=== PATIENT | female | born 1995 | race Hispanic/Latino ===

== ENCOUNTER 2023-11-20 09:00 | Emergency (ER) | payer BC ==
[~2023-11-20] VITALS: Ht 152.4 cm; Wt 129.3 kg
[2023-11-20 09:28] LABS: BASOPHILS # (AUTO) 0.1 (0.0-0.1); BASOPHILS % 0.8 % (0.0-1.0); EOSINOPHILS # (AUTO) 0.1 (0.0-0.4); EOSINOPHILS % 1.3 % (0.0-6.0); HEMATOCRIT 44.5 % (34.2-44.1); HEMOGLOBIN 16.1 g/dL (12.0-16.0); LYMPHOCYTES # (AUTO) 2.6 (1.0-3.2); LYMPHOCYTES % 29.3 % (18.0-39.1); MEAN CORPUSCULAR HEMOGLOBIN 32.4 pg (28-32); MEAN CORPUSCULAR HGB CONC 36.2 g/dL (31-35); MEAN CORPUSCULAR VOLUME 89.5 fL (81-99); MONOCYTES # (AUTO) 0.5 (0.2-0.8); MONOCYTES % 5.1 % (4.4-11.3); NEUTROPHILS # (AUTO) 5.6 (2.1-6.9); NEUTROPHILS % 62.5 % (38.7-80.0); PLATELET COUNT 300 x10e3/uL (140-360); RED BLOOD COUNT 4.97 x10e6/uL (3.6-5.1); RED CELL DISTRIBUTION WIDTH 12.2 % (11.7-14.4); WHITE BLOOD COUNT 9.01 x10e3/uL (4.8-10.8)
[2023-11-20] MEDS ORDERED: ONDANSETRON HCL INJ 2MG/ML 2ML 2 MG/ML VIAL ONE ×2 (09:33→14:24)
[2023-11-20] MEDS ORDERED: Morphine 4mg INJECTION 4 MG/ML INJ ONE ×2 (09:34→14:24)
[2023-11-20] MEDS ORDERED: SODIUM CHLORIDE 0.9% 1000ML 1,000 ML ONE (09:34)
[2023-11-20] MEDS ORDERED: KETOROLAC TROMETHAMINE 30 MG/ML VIAL ONE ×2 (09:34→14:24)
[2023-11-20] MEDS: SODIUM CHLORIDE 0.9% 1000ML 1,000 ML IV STA (09:35)
[2023-11-20] MEDS: Morphine 4mg INJECTION 4 MG/ML INJ IV STA (09:36)
[2023-11-20] MEDS: ONDANSETRON HCL INJ 2MG/ML 2ML 2 MG/ML VIAL IV STA (09:36)
[2023-11-20 09:50] LABS: INR 0.94; PARTIAL THROMBOPLASTIN TIME 29.5 seconds (23.8-35.5); PROTHROMBIN TIME 13.2 seconds (11.9-14.5)
[2023-11-20 09:52] LABS: ALANINE AMINOTRANSFERASE 75 IU/L (0-55); ALBUMIN 4.4 g/dL (3.5-5.0); ALBUMIN/GLOBULIN RATIO 1.1 (0.8-2.0); ALKALINE PHOSPHATASE 66 IU/L (40-150); ANION GAP 17.9 mmol/L (8-16); BILIRUBIN,TOTAL 0.8 mg/dL (0.2-1.2); BLOOD UREA NITROGEN 10 mg/dL (7-26); BUN/CREATININE RATIO 13 (6-25); CALCIUM 10.1 mg/dL (8.4-10.2); CARBON DIOXIDE 23 mmol/L (22-29); CHLORIDE 104 mmol/L (98-107); CREATININE, SERUM 0.75 mg/dL (0.57-1.11); EST GLOMERULAR FILTRATION RATE 113 ML/MIN (>=60); GLUCOSE 111 mg/dL (74-118); MAGNESIUM 1.7 MG/DL (1.3-2.1); POTASSIUM 3.9 mmol/L (3.5-5.1); SODIUM 141 mmol/L (136-145); TOTAL PROTEIN 8.3 g/dL (6.5-8.1)
[2023-11-20] MEDS: KETOROLAC TROMETHAMINE 30 MG/ML VIAL IV STA (10:29)
[2023-11-20 10:52] LABS: AMPHETAMINES SCREEN,URINE NEGATIVE (NEGATIVE); BENZODIAZEPINES SCREEN,URINE NEGATIVE (NEGATIVE); CANNABINOIDS SCREEN,URINE NEGATIVE (NEGATIVE); METHADONE SCREEN, URINE NEGATIVE (NEGATIVE); OPIATES SCREEN,URINE POSITIVE (NEGATIVE); PHENCYCLIDINE SCREEN,URINE NEGATIVE (NEGATIVE)
[2023-11-20 10:53] LABS: BILIRUBIN,URINE NEGATIVE (NEGATIVE); CLARITY,URINE CLOUDY (CLEAR); COLOR,URINE YELLOW (YELLOW); GLUCOSE, URINE NEGATIVE (NEGATIVE); KETONES,URINE NEGATIVE (NEGATIVE); LEUKOCYTE ESTERASE ,URINE NEGATIVE (NEGATIVE); NITRITE,URINE NEGATIVE (NEGATIVE); PH,URINE 5.5 (5 - 7); PROTEIN,URINE DIPSTICK NEGATIVE (NEGATIVE); URINE UROBILINOGEN 0.2 mg/dL (0.2 - 1)
[2023-11-20 11:01] LABS: BACTERIA,URINE FEW /HPF; EPITHELIAL CELLS,URINE FEW /LPF; RBC,URINE >50 /HPF (0-5); WBC,URINE (MAN) 0-5 /HPF (0-5)
[2023-11-20] MEDS ORDERED: ONDANSETRON ODT4 MG PO (11:34)
[2023-11-20] MEDS ORDERED: FLOMAX0.4 MG PO (11:34)
[2023-11-20] MEDS ORDERED: HYDROCODON-ACE1 EA11 PO (11:35)
[2023-11-20 12:02] VITALS: BP 114/64; PULSE 64; RESP 17; TEMP 98.1; O2SAT 97
[2023-11-20] MEDS ORDERED: SODIUM CHLORIDE 0.9% 1000 ML BAG ONE (14:24)
== END 2023-11-20 11:55 | disposition home or self-care (01) ==
LOC: ER 09:08
DX: R10.31 Right lower quadrant pain (principal); N13.2 Hydronephrosis with renal and ureteral calculous obstruction; K76.0 Fatty (change of) liver, not elsewhere classified; R16.0 Hepatomegaly, not elsewhere classified
CPT/HCPCS: 36415; 51798; 74176; 80053; 80307; 81001; 83735; 84702; 85025; 85610; 85730; 87086; 99284; J1885; J2270; J2405; J7030

== ENCOUNTER 2024-06-10 07:46 | Inpatient (IN) | payer BC ==
[~2024-06-10] VITALS: Ht 152.4 cm; Wt 129.7 kg
[2024-06-10] VITALS (7 sets, daily range): BP systolic 115–144; BP diastolic 71–91; PULSE 78–98; RESP 16–20; TEMP 97.7–99.3; O2SAT 98–100
[~2024-06-10 07:46] MED LIST: FLOMAX0.4 MG PO; HYDROCODON-ACE1 EA11 PO; ONDANSETRON ODT4 MG PO
[2024-06-10 08:26] LABS: BASOPHILS # (AUTO) 0.1 (0.0-0.1); BASOPHILS % 0.6 % (0.0-1.0); EOSINOPHILS # (AUTO) 0.1 (0.0-0.4); EOSINOPHILS % 1.1 % (0.0-6.0); HEMATOCRIT 42.1 % (34.2-44.1); HEMOGLOBIN 14.3 g/dL (12.0-16.0); LYMPHOCYTES # (AUTO) 2.5 (1.0-3.2); LYMPHOCYTES % 30.8 % (18.0-39.1); MEAN CORPUSCULAR HEMOGLOBIN 32.1 pg (28-32); MEAN CORPUSCULAR VOLUME 94.4 fL (81-99); MONOCYTES # (AUTO) 0.5 (0.2-0.8); MONOCYTES % 6.2 % (4.4-11.3); NEUTROPHILS % 60.8 % (38.7-80.0); PLATELET COUNT 250 x10e3/uL (140-360); RED BLOOD COUNT 4.46 x10e6/uL (3.6-5.1); WHITE BLOOD COUNT 8.17 x10e3/uL (4.8-10.8)
[2024-06-10] MEDS ORDERED: SODIUM CHLORIDE 0.9% 1000ML 1,000 ML IV SCH (08:30)
[2024-06-10 08:43] LABS: CLARITY,URINE CLOUDY (CLEAR); COLOR,URINE YELLOW (YELLOW); LEUKOCYTE ESTERASE ,URINE NEGATIVE (NEGATIVE); PH,URINE 5.5 (5 - 7)
[2024-06-10] MEDS: KETOROLAC TROMETHAMINE 30 MG/ML VIAL IV STA (08:43)
[2024-06-10] MEDS: ONDANSETRON HCL INJ 2MG/ML 2ML 2 MG/ML VIAL IV STA (08:43)
[2024-06-10 08:44] LABS: BACTERIA,URINE MODERATE /HPF; BILIRUBIN,URINE NEGATIVE (NEGATIVE); EPITHELIAL CELLS,URINE MANY /LPF; GLUCOSE, URINE NEGATIVE (NEGATIVE); KETONES,URINE NEGATIVE (NEGATIVE); NITRITE,URINE NEGATIVE (NEGATIVE); PROTEIN,URINE DIPSTICK 1+ (NEGATIVE); RBC,URINE >50 /HPF (0-5); URINE UROBILINOGEN 0.2 mg/dL (0.2 - 1)
[2024-06-10 08:45] LABS: PREGNANCY TEST, URINE NEGATIVE (NEGATIVE)
[2024-06-10 08:51] LABS: ANION GAP 14.6 mmol/L (8-16); CALCIUM 9.3 mg/dL (8.4-10.2); CREATININE, SERUM 0.74 mg/dL (0.57-1.11); POTASSIUM 3.6 mmol/L (3.5-5.1)
[2024-06-10] MEDS: Morphine 4mg INJECTION 4 MG/ML INJ IV ONE (10:01)
[2024-06-10] MEDS: SODIUM CHLORIDE 0.9% 1000ML 1,000 ML IV SCH (10:18)
[2024-06-10] MEDS ORDERED: ALBUTEROL/IPRATROPIUM 3 ML NEB NEB PRN (14:30)
[2024-06-10] MEDS ORDERED: ACETAMINOPHEN 325 MG TAB PO PRN (14:30)
[2024-06-10] MEDS ORDERED: HYDRALAZINE HCL 20 MG/ML VIAL IV PRN (14:30)
[2024-06-10] MEDS ORDERED: BENZONATATE 100 MG CAP PO PRN (14:30)
[2024-06-10] MEDS ORDERED: DOCUSATE SODIUM 100 MG CAP PO PRN (14:30)
[2024-06-10] MEDS ORDERED: DEXTROSE 50% SYRINGE 50 ML IV PRN (14:30)
[2024-06-10] MEDS ORDERED: LIDOCAINE 4% PATCH TP PRN (14:30)
[2024-06-10] MEDS ORDERED: POTASSIUM CHLORIDE 20 MEQ TAB CR PO PRN (14:30)
[2024-06-10] MEDS ORDERED: DIPHENHYDRAMINE HCL 25 MG CAP PO PRN (14:30)
[2024-06-10] MEDS ORDERED: SIMETHICONE 80 MG CHEW PO PRN (14:30)
[2024-06-10] MEDS: Morphine 4mg INJECTION 4 MG/ML INJ IV PRN (14:39)
[2024-06-10] MEDS: ENOXAPARIN SOD INJ 40 MG/0.4 ML SYR SC SCH (16:52)
[2024-06-10] MEDS: ONDANSETRON HCL INJ 2MG/ML 2ML 2 MG/ML VIAL IV PRN (16:59)
[2024-06-10] MEDS ORDERED: MELATONIN 5 MG TABLET PO PRN (21:00)
[2024-06-11] VITALS (11 sets, daily range): BP systolic 97–142; BP diastolic 53–91; PULSE 52–96; RESP 18–20; TEMP 97.6–99; O2SAT 96–99
[2024-06-11 06:43] LABS: BASOPHILS % 0.4 % (0.0-1.0); EOSINOPHILS # (AUTO) 0.1 (0.0-0.4); EOSINOPHILS % 0.9 % (0.0-6.0); HEMATOCRIT 37.6 % (34.2-44.1); HEMOGLOBIN 13.2 g/dL (12.0-16.0); LYMPHOCYTES # (AUTO) 1.6 (1.0-3.2); LYMPHOCYTES % 22.1 % (18.0-39.1); MEAN CORPUSCULAR HEMOGLOBIN 32.1 pg (28-32); MEAN CORPUSCULAR HGB CONC 35.1 g/dL (31-35); MEAN CORPUSCULAR VOLUME 91.5 fL (81-99); MONOCYTES # (AUTO) 0.5 (0.2-0.8); MONOCYTES % 7.1 % (4.4-11.3); NEUTROPHILS # (AUTO) 5.1 (2.1-6.9); PLATELET COUNT 234 x10e3/uL (140-360); RED BLOOD COUNT 4.11 x10e6/uL (3.6-5.1); RED CELL DISTRIBUTION WIDTH 11.9 % (11.7-14.4); WHITE BLOOD COUNT 7.43 x10e3/uL (4.8-10.8)
[2024-06-11 06:59] LABS: ANION GAP 13.9 mmol/L (8-16); CALCIUM 8.5 mg/dL (8.4-10.2); CREATININE, SERUM 1.09 mg/dL (0.57-1.11); POTASSIUM 3.9 mmol/L (3.5-5.1)
[2024-06-11] MEDS: PANTOPRAZOLE SOD 40 MG TABEC PO SCH (07:26)
[2024-06-12 06:44] LABS: BASOPHILS % 0.4 % (0.0-1.0); EOSINOPHILS # (AUTO) 0.1 (0.0-0.4); EOSINOPHILS % 1.5 % (0.0-6.0); HEMATOCRIT 35.6 % (34.2-44.1); HEMOGLOBIN 12.5 g/dL (12.0-16.0); LYMPHOCYTES # (AUTO) 1.8 (1.0-3.2); MEAN CORPUSCULAR HEMOGLOBIN 32.2 pg (28-32); MEAN CORPUSCULAR HGB CONC 35.1 g/dL (31-35); MEAN CORPUSCULAR VOLUME 91.8 fL (81-99); MONOCYTES # (AUTO) 0.5 (0.2-0.8); MONOCYTES % 7.2 % (4.4-11.3); NEUTROPHILS # (AUTO) 4.3 (2.1-6.9); NEUTROPHILS % 63.6 % (38.7-80.0); PLATELET COUNT 205 x10e3/uL (140-360); RED BLOOD COUNT 3.88 x10e6/uL (3.6-5.1); WHITE BLOOD COUNT 6.79 x10e3/uL (4.8-10.8)
[2024-06-12] MEDS ORDERED: IOPAMIDOL 610MG/1ML 300 MG/ML VIAL IV ONE (06:52)
[2024-06-12 07:15] LABS: ANION GAP 12.7 mmol/L (8-16); CALCIUM 8.6 mg/dL (8.4-10.2); CREATININE, SERUM 1.09 mg/dL (0.57-1.11); POTASSIUM 3.7 mmol/L (3.5-5.1)
[2024-06-12 08:00] VITALS: BP 129/82; PULSE 89; RESP 20; TEMP 98.5; O2SAT 99
[2024-06-12 09:03] VITALS: BP 129/82; PULSE 89; RESP 20; TEMP 98.5; O2SAT 99
[2024-06-12 12:52] VITALS: BP 133/73; PULSE 93; RESP 20; TEMP 98.3; O2SAT 95
[2024-06-12 16:33] VITALS: BP 131/79; PULSE 80; RESP 20; TEMP 98.1; O2SAT 95
[2024-06-12 20:00] VITALS: BP 126/80; PULSE 88; RESP 18; TEMP 98.4; O2SAT 98
[2024-06-13] VITALS: BP 127/80; PULSE 79; RESP 18; TEMP 98.1; O2SAT 95
[2024-06-13] MEDS ORDERED: MIDAZOLAM HCL 2 MG/2 ML VIAL ONE (02:49)
[2024-06-13] MEDS ORDERED: LIDOCAINE HCL 2% LOCAL INJ 5 ML SDV VIAL INJ ONE (02:50)
[2024-06-13] MEDS ORDERED: FENTANYL CITRATE/PF 100MCG/2 ML INJ ONE (02:50)
[2024-06-13] MEDS ORDERED: PROPOFOL IV EMULSION 10 MG/ML 20 ML VIAL ONE (02:52)
[2024-06-13] MEDS ORDERED: DEXAMETHASONE SOD PHOS INJ 4 MG/ML SDV ONE (03:00)
[2024-06-13] MEDS ORDERED: KETOROLAC TROMETHAMINE 30 MG/ML VIAL ONE (03:29)
[2024-06-13] MEDS ORDERED: ONDANSETRON HCL INJ 2MG/ML 2ML 2 MG/ML VIAL ONE (03:29)
[2024-06-13 04:00] VITALS: BP 123/81; PULSE 74; RESP 20; TEMP 97.8; O2SAT 98
[2024-06-13 06:03] LABS: HEMATOCRIT 36.4 % (34.2-44.1); HEMOGLOBIN 12.7 g/dL (12.0-16.0)
[2024-06-13 06:30] LABS: ANION GAP 14.5 mmol/L (8-16); CALCIUM 8.9 mg/dL (8.4-10.2); CREATININE, SERUM 0.83 mg/dL (0.57-1.11); POTASSIUM 4.5 mmol/L (3.5-5.1)
[2024-06-13 08:00] VITALS: BP 122/79; PULSE 87; RESP 19; TEMP 97.9; O2SAT 97
[2024-06-13] MEDS: SOLIFENACIN SUCCINATE 5 MG TAB PO SCH (08:28)
[2024-06-13] MEDS: PHENAZOPYRIDINE HCL 100 MG TAB PO SCH (08:28)
[2024-06-13] MEDS: ACETAMINOPHEN 1000 MG/100 ML IV PRN (11:21)
[2024-06-13 12:13] VITALS: BP 122/66; PULSE 88; RESP 19; TEMP 97.8; O2SAT 100
[2024-06-13 16:00] VITALS: BP 111/63; PULSE 74; RESP 19; TEMP 98.1; O2SAT 100
[2024-06-15 07:22] LABS: CALCIUM 8.1 mg/dL (8.7-10.2)
== END 2024-06-13 16:30 | disposition home health service (06) | DRG 660 ==
LOC: ER 07:52 → ERHOLD 09:52 → MED/SURG2 13:35
PROVIDERS: ADMIT Internal Medicine; ATTEND Internal Medicine
PROC: BT161ZZ Fluoroscopy of Right Ureter using Low Osmolar Contrast (ICD-10-PCS; 2024-06-12)
PROC: BT171ZZ Fluoroscopy of Left Ureter using Low Osmolar Contrast (ICD-10-PCS; 2024-06-12)
PROC: 0UJH7ZZ Inspection of Vagina and Cul-de-sac, Via Natural or Artificial Opening (ICD-10-PCS; 2024-06-12)
PROC: 0T788DZ Dilation of Bilateral Ureters with Intraluminal Device, Via Natural or Artificial Opening Endoscopic (ICD-10-PCS; principal; 2024-06-12 10:50)
PROC: 0TF78ZZ Fragmentation in Left Ureter, Via Natural or Artificial Opening Endoscopic (ICD-10-PCS; 2024-06-12 10:50)
DX: N13.6 Pyonephrosis (principal); Z68.43 Body mass index [BMI] 50.0-59.9, adult; E66.01 Morbid (severe) obesity due to excess calories; R16.0 Hepatomegaly, not elsewhere classified; K76.0 Fatty (change of) liver, not elsewhere classified; E78.5 Hyperlipidemia, unspecified; N23 Unspecified renal colic; R31.29 Other microscopic hematuria; R11.2 Nausea with vomiting, unspecified; Z88.2 Allergy status to sulfonamides; N81.4 Uterovaginal prolapse, unspecified
CPT/HCPCS: 36415; 74176; 74420; 80048; 81001; 81025; 83970; 84550; 85014; 85018; 85025; 87086; 94799; 99284; C1758; C1769; C2617; J0696; J1100; J1650; J1885; J2003; J2250; J2270; J2405; J7030

== ENCOUNTER 2024-06-30 08:35 | Observation (INO) | payer BC ==
[~2024-06-30] VITALS: Ht 152.4 cm; Wt 129.7 kg
[2024-06-30 08:52] VITALS: PULSE 88; RESP 16; TEMP 98
[2024-06-30] MEDS ORDERED: HYDROCODONE/APAP 5MG-325MG TAB PO PRN (09:00)
[2024-06-30 09:07] LABS: BASOPHILS # (AUTO) 0.1 (0.0-0.1); EOSINOPHILS # (AUTO) 0.5 (0.0-0.4); EOSINOPHILS % 6.2 % (0.0-6.0); HEMATOCRIT 40.9 % (34.2-44.1); HEMOGLOBIN 13.5 g/dL (12.0-16.0); LYMPHOCYTES # (AUTO) 2.4 (1.0-3.2); LYMPHOCYTES % 33.7 % (18.0-39.1); MEAN CORPUSCULAR HEMOGLOBIN 31.5 pg (28-32); MEAN CORPUSCULAR VOLUME 95.3 fL (81-99); MONOCYTES # (AUTO) 0.4 (0.2-0.8); MONOCYTES % 5.9 % (4.4-11.3); NEUTROPHILS # (AUTO) 3.8 (2.1-6.9); NEUTROPHILS % 52.8 % (38.7-80.0); PLATELET COUNT 282 x10e3/uL (140-360); RED BLOOD COUNT 4.29 x10e6/uL (3.6-5.1); RED CELL DISTRIBUTION WIDTH 12.3 % (11.7-14.4); WHITE BLOOD COUNT 7.25 x10e3/uL (4.8-10.8)
[2024-06-30 09:19] LABS: INR 0.88; PROTHROMBIN TIME 12.5 seconds (11.9-14.5)
[2024-06-30 09:20] LABS: PARTIAL THROMBOPLASTIN TIME 29.3 seconds (23.8-35.5)
[2024-06-30 09:47] LABS: ALBUMIN 3.9 g/dL (3.5-5.0); ALBUMIN/GLOBULIN RATIO 1.4 (0.8-2.0); ANION GAP 14.9 mmol/L (8-16); CALCIUM 9.8 mg/dL (8.4-10.2); CREATININE, SERUM 0.73 mg/dL (0.57-1.11); POTASSIUM 3.9 mmol/L (3.5-5.1); TOTAL PROTEIN 6.7 g/dL (6.5-8.1)
[2024-06-30] MEDS: SODIUM CHLORIDE 0.9% 1000ML 1,000 ML IV SCH (10:10)
[2024-06-30 10:22] LABS: URIC ACID 7.6 mg/dL (2.6-8.0)
[2024-06-30] MEDS: Morphine 2mg Syringe 2 MG/ML SYR IV PRN ×2 (11:55→17:51)
[2024-06-30] MEDS ORDERED: LIDOCAINE HCL 2% LOCAL INJ 5 ML SDV VIAL INJ ONE (12:17)
[2024-06-30] MEDS ORDERED: ONDANSETRON HCL INJ 2MG/ML 2ML 2 MG/ML VIAL ONE (12:17)
[2024-06-30] MEDS ORDERED: DEXAMETHASONE SOD PHOS INJ 4 MG/ML SDV ONE (12:19)
[2024-06-30] MEDS ORDERED: PROPOFOL IV EMULSION 10 MG/ML 20 ML VIAL ONE (12:19)
[2024-06-30] MEDS ORDERED: FENTANYL CITRATE/PF 100MCG/2 ML INJ ONE ×2 (12:19→13:12)
[2024-06-30] MEDS ORDERED: MIDAZOLAM HCL 2 MG/2 ML VIAL ONE (12:19)
[2024-06-30] MEDS ORDERED: CEFTRIAXONE 1 GM VIAL ONE (12:37)
[2024-06-30] MEDS ORDERED: KETOROLAC TROMETHAMINE 30 MG/ML VIAL ONE (13:31)
[2024-06-30 14:09] VITALS: BP 148/104; PULSE 83; RESP 19; TEMP 98; O2SAT 96
[2024-06-30] MEDS ORDERED: LIDOCAINE 4% PATCH TP PRN (14:30)
[2024-06-30] MEDS ORDERED: DOCUSATE SODIUM 100 MG CAP PO PRN (14:30)
[2024-06-30] MEDS ORDERED: ACETAMINOPHEN 325 MG TAB PO PRN (14:30)
[2024-06-30] MEDS ORDERED: HYDRALAZINE HCL 20 MG/ML VIAL IV PRN (14:30)
[2024-06-30] MEDS ORDERED: ALBUTEROL/IPRATROPIUM 3 ML NEB NEB PRN (14:30)
[2024-06-30] MEDS ORDERED: BENZONATATE 100 MG CAP PO PRN (14:30)
[2024-06-30] MEDS ORDERED: POTASSIUM CHLORIDE 20 MEQ TAB CR PO PRN (14:30)
[2024-06-30] MEDS ORDERED: DIPHENHYDRAMINE HCL 25 MG CAP PO PRN (14:30)
[2024-06-30] MEDS ORDERED: SIMETHICONE 80 MG CHEW PO PRN (14:30)
[2024-06-30] MEDS ORDERED: DEXTROSE 50% SYRINGE 50 ML IV PRN (14:30)
[2024-06-30 16:00] VITALS: BP 130/79; PULSE 73; RESP 17; TEMP 97.5; O2SAT 99
[2024-06-30 18:43] VITALS: BP 130/79; PULSE 73; RESP 17; TEMP 97.5; O2SAT 99
[2024-06-30 20:00] VITALS: BP 124/71; PULSE 99; RESP 18; TEMP 97.9; O2SAT 99
[2024-06-30] MEDS: ONDANSETRON HCL INJ 2MG/ML 2ML 2 MG/ML VIAL IV PRN (20:30)
[2024-07-01] VITALS: BP 119/79; PULSE 101; RESP 18; TEMP 98.2; O2SAT 96
[2024-07-01 04:00] VITALS: BP 127/80; PULSE 65; RESP 18; TEMP 97.7; O2SAT 96
[2024-07-01 06:47] LABS: HEMATOCRIT 39.7 % (34.2-44.1); HEMOGLOBIN 13.3 g/dL (12.0-16.0)
[2024-07-01 07:21] LABS: ANION GAP 15.1 mmol/L (8-16); CALCIUM 9.3 mg/dL (8.4-10.2); CREATININE, SERUM 0.74 mg/dL (0.57-1.11); POTASSIUM 4.1 mmol/L (3.5-5.1)
[2024-07-01 08:00] VITALS: BP 128/77; PULSE 94; RESP 17; TEMP 97.8; O2SAT 100
[2024-07-01] MEDS: PANTOPRAZOLE SOD 40 MG TABEC PO SCH (09:14)
[2024-07-01 09:25] VITALS: BP 128/77; PULSE 94; RESP 17; TEMP 97.8; O2SAT 100
[2024-07-01 12:00] VITALS: BP 126/78; PULSE 97; RESP 19; TEMP 98.6; O2SAT 99
== END 2024-07-01 15:50 | disposition home or self-care (01) ==
LOC: ER 08:40 → ERHOLD 09:21 → MED/SURG2 10:42
PROVIDERS: ADMIT Internal Medicine; ATTEND Internal Medicine
DX: T83.84XA Pain due to genitourinary prosthetic devices, implants and grafts, initial encounter (principal); G89.18 Other acute postprocedural pain; Z46.6 Encounter for fitting and adjustment of urinary device; N13.6 Pyonephrosis; R31.29 Other microscopic hematuria; R31.0 Gross hematuria; N81.4 Uterovaginal prolapse, unspecified; E66.01 Morbid (severe) obesity due to excess calories; Z68.43 Body mass index [BMI] 50.0-59.9, adult; F41.9 Anxiety disorder, unspecified; F32.A Depression, unspecified; E28.2 Polycystic ovarian syndrome; E78.5 Hyperlipidemia, unspecified; G43.909 Migraine, unspecified, not intractable, without status migrainosus; Y83.8 Other surgical procedures as the cause of abnormal reaction of the patient, or of later complication, without mention of misadventure at the time of the procedure; Y92.009 Unspecified place in unspecified non-institutional (private) residence as the place of occurrence of the external cause
CPT/HCPCS: 36415 ×2; 52352; 74018; 74420; 80048; 80053; 84550; 84702; 85014; 85018; 85025; 85610; 85730; 87086; 88300; 99284; C1766; C1769; G0378 ×2; J0696 ×2; J1100; J1885; J2003; J2250; J2270 ×2; J2405; J2704; J3010; J7030 ×2; S0164

== ENCOUNTER 2024-10-17 19:30 | Emergency (ER) | payer BC ==
[~2024-10-17] VITALS: Ht 152.4 cm; Wt 129.7 kg
[2024-10-17 20:00] VITALS: TEMP 98.4
[2024-10-17 20:17] LABS: BASOPHILS # (AUTO) 0.1 (0.0-0.1); BASOPHILS % 0.5 % (0.0-1.0); EOSINOPHILS # (AUTO) 0.1 (0.0-0.4); EOSINOPHILS % 1.2 % (0.0-6.0); HEMATOCRIT 40.5 % (34.2-44.1); HEMOGLOBIN 14.1 g/dL (12.0-16.0); LYMPHOCYTES # (AUTO) 2.8 (1.0-3.2); LYMPHOCYTES % 30.3 % (18.0-39.1); MEAN CORPUSCULAR HEMOGLOBIN 31.2 pg (28-32); MEAN CORPUSCULAR HGB CONC 34.8 g/dL (31-35); MEAN CORPUSCULAR VOLUME 89.6 fL (81-99); MONOCYTES # (AUTO) 0.6 (0.2-0.8); MONOCYTES % 6.1 % (4.4-11.3); NEUTROPHILS # (AUTO) 5.8 (2.1-6.9); NEUTROPHILS % 61.5 % (38.7-80.0); PLATELET COUNT 272 x10e3/uL (140-360); RED BLOOD COUNT 4.52 x10e6/uL (3.6-5.1); RED CELL DISTRIBUTION WIDTH 12.4 % (11.7-14.4); WHITE BLOOD COUNT 9.37 x10e3/uL (4.8-10.8)
[2024-10-17] MEDS: SODIUM CHLORIDE 0.9% 1000ML 1,000 ML IV ONE (20:29)
[2024-10-17] MEDS: ONDANSETRON HCL INJ 2MG/ML 2ML 2 MG/ML VIAL IV STA (20:30)
[2024-10-17 20:36] LABS: ALBUMIN 3.8 g/dL (3.5-5.0); ALBUMIN/GLOBULIN RATIO 1.2 (0.8-2.0); ANION GAP 15.8 mmol/L (8-16); BILIRUBIN,TOTAL 0.6 mg/dL (0.2-1.2); CALCIUM 9.2 mg/dL (8.4-10.2); CREATININE, SERUM 0.74 mg/dL (0.57-1.11); POTASSIUM 3.8 mmol/L (3.5-5.1); TOTAL PROTEIN 7.1 g/dL (6.5-8.1)
[2024-10-17 21:18] LABS: CLARITY,URINE HAZY (CLEAR); COLOR,URINE YELLOW (YELLOW)
[2024-10-17 21:19] LABS: BILIRUBIN,URINE NEGATIVE (NEGATIVE); GLUCOSE, URINE NEGATIVE (NEGATIVE); KETONES,URINE NEGATIVE (NEGATIVE); LEUKOCYTE ESTERASE ,URINE SMALL (NEGATIVE); NITRITE,URINE NEGATIVE (NEGATIVE); PH,URINE 6 (5 - 7); PROTEIN,URINE DIPSTICK NEGATIVE (NEGATIVE); URINE UROBILINOGEN 0.2 mg/dL (0.2 - 1)
[2024-10-17] MEDS ORDERED: KETOROLAC TROMETHAMINE 30 MG/ML VIAL IV STA (21:22)
[2024-10-17 21:24] LABS: PREGNANCY TEST, URINE NEGATIVE (NEGATIVE)
[2024-10-17 21:41] LABS: BACTERIA,URINE MANY /HPF; EPITHELIAL CELLS,URINE MODERATE /LPF; RBC,URINE 0-5 /HPF (0-5); WBC,URINE (MAN) 21-50 /HPF (0-5)
[2024-10-17] MEDS: KETOROLAC TROMETHAMINE 60 MG/2 ML VIAL IM ONE (22:02)
[2024-10-17] MEDS ORDERED: CEFDINIR 300 MG CAP ONE (22:22)
[2024-10-17] MEDS ORDERED: ONDANSETRON ODT4 MG SL (22:24)
[2024-10-17] MEDS ORDERED: PYRIDIUM200 MG PO (22:24)
[2024-10-17] MEDS ORDERED: CEFDINIR300 MG PO (22:24)
[2024-10-17] MEDS ORDERED: CEFDINIR 300 MG CAP PO STA (22:25)
[2024-10-17 22:35] VITALS: PULSE 86; RESP 17
[2024-10-17 22:37] VITALS: BP 131/77; PULSE 86; RESP 17; O2SAT 100
== END 2024-10-17 22:38 | disposition home or self-care (01) ==
LOC: ER 20:09
DX: R11.2 Nausea with vomiting, unspecified (principal); N39.0 Urinary tract infection, site not specified; R10.10 Upper abdominal pain, unspecified; E78.5 Hyperlipidemia, unspecified; E28.2 Polycystic ovarian syndrome; Z87.442 Personal history of urinary calculi
CPT/HCPCS: 36415; 76705; 80053; 81001; 81025; 83690; 85025; 99284; J1885; J2405; J2470; J7030